=== PATIENT | male | born 1990 | race Caucasian/White ===

== ENCOUNTER 2023-05-28 17:58 | Emergency (ER) | payer BC ==
[~2023-05-28] VITALS: Ht 177.8 cm; Wt 81.0 kg
[2023-05-28 18:02] VITALS: TEMP 98.4; O2SAT 100
[2023-05-28 19:13] LABS: BASOPHILS % 0.4 % (0.0-2.0); EOSINOPHILS % 0.2 % (0.0-5.0); HEMATOCRIT. 42.1 % (42.0-52.0); HEMOGLOBIN. 14.4 g/dL (14.0-18.0); LYMPHOCYTES % 13.7 % (20.0-50.0); MEAN CORPUSCULAR HGB CONC 34.2 g/dL (31.0-37.0); MEAN CORPUSCULAR VOLUME 90.6 fL (80.0-94.0); MEAN PLATELET VOLUME 6.9 fl (7.4-10.4); MONOCYTES % 8.7 % (2.0-8.0); PLATELET 356 x1000/uL (130-400); RED BLOOD CELL COUNT 4.64 mill/uL (4.7-6.1); RED CELL DISTRIBUTION WIDTH 13.2 % (11.6-14.6); WHITE BLOOD COUNT 12.3 x1000/uL (4.5-11.0)
[2023-05-28 19:27] LABS: ALBUMIN 4.9 g/dL (3.2-4.8); CALCIUM 9.7 mg/dL (8.7-10.4); CARBON DIOXIDE 23 mEq/L (21-32); CHLORIDE 100 mEq/L (98-107); CREATININE 0.8 mg/dL (0.6-1.3); GLUCOSE 82 mg/dL (70-105); POTASSIUM 3.6 mEq/L (3.5-5.1); PROTEIN TOTAL 7.1 g/dL (6.0-8.3); SODIUM 139 mEq/L (136-145); UREA NITROGEN BLOOD 12 mg/dL (9-23)
[2023-05-28 19:28] LABS: ALANINE AMINOTRANSFERASE 29 IU/L (10-49); ASPARTATE AMINOTRANSFERASE 48 IU/L (<34); BILIRUBIN TOTAL 1.2 mg/dL (0.1-1.0)
[2023-05-28] MEDS ORDERED: SODIUM CHLORIDE 0.9% 1,000 ML IV ONE (19:45)
[2023-05-28] MEDS ORDERED: CEFTRIAXONE 1GM PREMIX 50 ML IV ONE (19:45)
[2023-05-28] MEDS ORDERED: KETOROLAC 15MG/ML VIAL IV ONE (19:45)
[2023-05-28] MEDS ORDERED: AMOX1TAB16 MT (20:49)
[2023-05-28 22:05] VITALS: BP 129/91; PULSE 86; RESP 17
== END 2023-05-28 22:13 | disposition home or self-care (01) ==
LOC: ER 17:58
DX: K57.92 Diverticulitis of intestine, part unspecified, without perforation or abscess without bleeding (principal); R00.0 Tachycardia, unspecified; D72.829 Elevated white blood cell count, unspecified; K76.0 Fatty (change of) liver, not elsewhere classified; Z98.890 Other specified postprocedural states
CPT/HCPCS: 99284; 74176; 80053; 83690; 85025; 36415; J7030